=== PATIENT | male | born 1980 | race Caucasian/White ===

== ENCOUNTER 2020-07-21 05:55 | Emergency (ER) | payer OTHER, MEDICAID ==
[~2020-07-21] VITALS: Ht 175.3 cm; Wt 81.6 kg
[2020-07-21 06:00] VITALS: BP 114/69
--- NOTE | 2020-07-21 06:00 | NUR ---
PT SENT TO TENT TO A/W EVALUATION
[2020-07-21 07:40] VITALS: BP 114/69
--- NOTE | 2020-07-21 07:40 | NUR ---
Patient discharged with v/s stable. Written and verbal after care instructions given and explained. Patient verbalized understanding. Ambulatory with steady gait. All questions addressed prior to discharge. Advised to follow up with PMD.
== END 2020-07-21 07:40 | disposition home or self-care (01) ==
LOC: MED 05:55
DX: R06.02 Shortness of breath (principal); R07.89 Other chest pain; F17.210 Nicotine dependence, cigarettes, uncomplicated; F15.90 Other stimulant use, unspecified, uncomplicated
CPT/HCPCS: 99281